=== PATIENT | female | born 1980 ===

== ENCOUNTER 2022-03-14 16:14 | Emergency (ER) | payer BC ==
[2022-03-14] MEDS ORDERED: predniSONE 10 MG Tab PO ONE (18:25)
[2022-03-14] MEDS ORDERED: Sulfamethoxazole/Trimethoprim 800-160 MG Tab PO ONE (18:25)
== END 2022-03-14 18:51 | disposition home or self-care (01) ==
LOC: MW.ED 16:14
DX: T63.461A Toxic effect of venom of wasps, accidental (unintentional), initial encounter (principal); L03.90 Cellulitis, unspecified; I10 Essential (primary) hypertension
CPT/HCPCS: 99283; A9270